=== PATIENT | male | born 1950 | race Caucasian/White ===

== ENCOUNTER → 2020-11-01 07:32 | Outpatient (CLI) | payer MEDICARE, OTHER, SELFPAY ==
[2020-11-01] MEDS: COVID-19 VACC #1, MRNA(MOD) 100 MCG/0.5 ML VIAL IM (07:37)
== END ==
PROVIDERS: Visit Provider Internal Medicine
DX: Z23 Encounter for immunization (principal)
CPT/HCPCS: 0011A; 91301

== ENCOUNTER → 2020-11-29 07:26 | Outpatient (CLI) | payer MEDICARE, OTHER, SELFPAY ==
[2020-11-29] MEDS: COVID-19 VACC #2, MRNA(MOD) 100 MCG/0.5 ML VIAL IM (07:36)
== END ==
PROVIDERS: Visit Provider Internal Medicine
DX: Z23 Encounter for immunization (principal)
CPT/HCPCS: 0012A; 91301

== ENCOUNTER → 2021-09-18 07:48 | Outpatient (CLI) | payer MEDICARE, OTHER, SELFPAY ==
--- NOTE | 2021-09-18 | DI.RAD.S_ITS ---
PROCEDURE: XR HAND RT 2V INDICATIONS: Hand pain TECHNIQUE: 3 views of the hand(s) acquired. COMPARISON: None. FINDINGS: Bones: No fractures or dislocations. Carpal bones are normally aligned. No suspicious bony lesions. There are degenerative changes of the interphalangeal joints. No erosions or evidence of inflammatory arthropathy. Soft tissues: No suspicious soft tissue calcifications. IMPRESSION: 1. No acute abnormality of the right hand. 2. No radiographic evidence of inflammatory arthropathy. 3. Mild degenerative changes of the interphalangeal joints. Dictated by: Boby López M.D. on 09/18/2021 at 14:58 Approved by: Boby López M.D. on 09/18/2021 at 14:59
--- NOTE | 2021-09-18 | DI.RAD.S_ITS ---
PROCEDURE: XR HAND LT 2V INDICATIONS: hand pain TECHNIQUE: 2 views of the hand acquired. COMPARISON: None. FINDINGS: Bones: No acute fractures or dislocations. Carpal bones are normally aligned. No suspicious bony lesions. Mild scattered degenerative changes are seen involving the 1st carpometacarpal joint, the triscaphe joint, and nearly all of the interphalangeal joints. No definite osseous erosion is seen. Soft tissues: No suspicious soft tissue calcifications. IMPRESSION: No acute osseous abnormality. Mild scattered degenerative osteoarthrosis. If the symptoms persist, consider cross sectional imaging such as MRI for further assessment. Dictated by: Ramiro Roland M.D. on 09/18/2021 at 10:27 Approved by: Ramiro Roland M.D. on 09/18/2021 at 10:30
[2021-09-18 09:10] LABS: Add Manual Diff / Slide Review NO; Basophils Absolute Auto 0 /uL (0-100); Basophils Percent Auto 0.7 % (0-2); Eosinophils Absolute Auto 400 /uL (0-450); Eosinophils Percent Auto 5.3 % (2-4); Hematocrit 43.6 % (41-53); Hemoglobin 14.8 g/dL (13.5-17.5); Lymphocytes Absolute Auto 1500 /uL (1100-4500); Lymphocytes Percent Auto 21.6 % (25-40); Mean Corpuscular HGB Conc 33.9 % (30-36); Mean Corpuscular Hemoglobin 32.1 PG (26-34); Mean Corpuscular Volume 94.6 fL (80-100); Monocytes Absolute Auto 600 /uL (0-900); Monocytes Percent Auto 8.8 % (3-14); Neutrophils Absolute Auto 4500 /uL (1500-7000); Neutrophils Percent Auto 63.6 % (50-75); Platelet Count 280 X10^3/uL (150-400); Red Blood Cell Count 4.61 X10^6/uL (4.5-5.9); Red Cell Distribution Width 13.8 % (11.6-14.8)
[2021-09-18 09:34] LABS: Erythrocyte Sedimentation Rate 5 MM/HR (0-15)
[2021-09-18 10:06] LABS: Alanine Aminotransferase 25 IU/L (<50); Albumin 4.2 g/dL (3.5-5.0); Albumin Globulin Ratio 1.6 (1.0-2.8); Alkaline Phosphatase 58 U/L (38-126); Aspartate Aminotransferase 25 IU/L (17-59); BUN Creatinine Ratio 18.1 (6-22); Bilirubin Total 1.4 mg/dL (0.2-1.3); Blood Urea Nitrogen 15 mg/dL (9-20); Calcium 9.8 mg/dL (8.4-10.2); Carbon Dioxide 26 mmol/L (22-32); Chloride 108 mmol/L (98-107); Cholesterol 149 mg/dL (140-199); Estimated Glomerular Filt Rate > 60.0 mL/min (>60); Globulin 2.6 g/dL (1.7-4.1); Glucose 95 mg/dL (80-110); HDL Cholesterol 65 mg/dL (40-60); HEMOLYSIS < 15 (0-50); LDL Cholesterol Calculated 66 mg/dL (<100); Potassium 4.4 mmol/L (3.4-5.1); Sodium 139 mmol/L (137-145); Total Protein 6.8 g/dL (6.3-8.2); Triglycerides 92 mg/dL (35-150)
[2021-09-19 17:41] LABS: ANA Screen, IFA Negative (.)
== END ==
PROVIDERS: Referring Provider Physician Assistant; Visit Provider Physician Assistant
DX: I10 Essential (primary) hypertension (principal); M25.549 Pain in joints of unspecified hand; E78.5 Hyperlipidemia, unspecified
CPT/HCPCS: 36415; 73120; 80053; 80061; 85025; 85651; 86038

== ENCOUNTER → 2022-06-18 12:28 | Outpatient (CLI) | payer MEDICARE, OTHER, SELFPAY ==
--- NOTE | 2022-06-18 12:32 | DI.RAD.S_ITS ---
PROCEDURE: XR SHOULDER LT MIN 2V INDICATIONS: SHOULDER PAIN TECHNIQUE: 4 views of the shoulder were acquired. COMPARISON: None. FINDINGS: Bones: No acute fractures or dislocations. No suspicious bony lesions. Visualized ribs appear intact. Moderate left acromioclavicular osteoarthrosis. Mild glenohumeral joint degenerative change. Coracoclavicular and acromioclavicular intervals are maintained. Soft tissues: No suspicious soft tissue calcifications. IMPRESSION: Left shoulder without acute fracture or dislocation. Degenerative changes of the left acromioclavicular and glenohumeral joints. Dictated by: Michael Denise M.D. on 06/18/2022 at 14:04 Approved by: Michael Denise M.D. on 06/18/2022 at 14:05
--- NOTE | 2022-06-18 12:32 | DI.RAD.S_ITS ---
PROCEDURE: XR SHOULDER RT MIN 2V INDICATIONS: SHOULDER PAIN TECHNIQUE: 3 views of the shoulder were acquired. COMPARISON: None. FINDINGS: Bones: No acute fractures or dislocations. No suspicious bony lesions. Visualized ribs appear intact. Moderate degenerative changes of the right acromioclavicular joint. Minimal glenohumeral joint degenerative change. Coracoclavicular and acromioclavicular intervals are maintained. Soft tissues: No suspicious soft tissue calcifications. IMPRESSION: Right shoulder without acute fracture or dislocation. Degenerative changes of the right acromioclavicular and glenohumeral joints. Dictated by: Michael Denise M.D. on 06/18/2022 at 14:05 Approved by: Michael Denise M.D. on 06/18/2022 at 14:17
== END ==
PROVIDERS: PCP Family Medicine; Referring Provider Family Medicine; Visit Provider Family Medicine
DX: M25.511 Pain in right shoulder (principal); M25.512 Pain in left shoulder
CPT/HCPCS: 73030

== ENCOUNTER → 2022-06-19 06:58 | Outpatient (CLI) | payer MEDICARE, OTHER, SELFPAY ==
[2022-06-19 08:26] LABS: Add Manual Diff / Slide Review NO; Basophils Absolute Auto 100 /uL (0-100); Basophils Percent Auto 0.8 % (0-2); Eosinophils Absolute Auto 300 /uL (0-450); Eosinophils Percent Auto 3.5 % (2-4); Hematocrit 36.3 % (41-53); Hemoglobin 12.5 g/dL (13.5-17.5); Lymphocytes Absolute Auto 1500 /uL (1100-4500); Lymphocytes Percent Auto 16.6 % (25-40); Mean Corpuscular HGB Conc 34.4 % (30-36); Mean Corpuscular Hemoglobin 30.9 PG (26-34); Mean Corpuscular Volume 89.8 fL (80-100); Monocytes Absolute Auto 700 /uL (0-900); Monocytes Percent Auto 7.6 % (3-14); Neutrophils Absolute Auto 6500 /uL (1500-7000); Neutrophils Percent Auto 71.5 % (50-75); Platelet Count 357 X10^3/uL (150-400); Red Blood Cell Count 4.05 X10^6/uL (4.5-5.9); Red Cell Distribution Width 14.1 % (11.6-14.8)
[2022-06-19 08:58] LABS: Alanine Aminotransferase 15 IU/L (<50); Albumin 3.9 g/dL (3.5-5.0); Albumin Globulin Ratio 1.3 (1.0-2.8); Alkaline Phosphatase 74 U/L (38-126); Aspartate Aminotransferase 18 IU/L (17-59); BUN Creatinine Ratio 26.7 (6-22); Bilirubin Total 0.8 mg/dL (0.2-1.3); Blood Urea Nitrogen 24 mg/dL (9-20); Calcium 9.6 mg/dL (8.4-10.2); Carbon Dioxide 25 mmol/L (22-32); Chloride 104 mmol/L (98-107); Cholesterol 143 mg/dL (140-199); Estimated Glomerular Filt Rate > 60 mL/min (>60); Globulin 2.9 g/dL (1.7-4.1); Glucose 91 mg/dL (80-110); HDL Cholesterol 48 mg/dL (40-60); HEMOLYSIS < 15 (0-50); LDL Cholesterol Calculated 79 mg/dL (<100); Potassium 4.5 mmol/L (3.4-5.1); Sodium 140 mmol/L (137-145); Total Protein 6.8 g/dL (6.3-8.2); Triglycerides 78 mg/dL (35-150)
[2022-06-19 09:03] LABS: Creatinine Urine Random 230.4 mg/dL
[2022-06-19 09:06] LABS: Microalbumi Creatinin Ratio Ur 4.7 ug/mg CR (<30); Microalbumin Urine Random 1.1 mg/dL (0-1.6)
[2022-06-19 09:18] LABS: Vitamin D 25 Hydroxy (D3) 93.4 ng/mL (30.0-100.0)
[2022-06-19 09:31] LABS: Prostate Specific Antigen 1.85 ng/mL (0.10-4.00)
[2022-06-19 10:07] LABS: Folate > 20.0 ng/mL (2.76-20.0); Vitamin B12 591 pg/mL (239-931)
== END ==
PROVIDERS: PCP Family Medicine; Referring Provider Family Medicine; Visit Provider Family Medicine
DX: E78.5 Hyperlipidemia, unspecified (principal); R39.198 Other difficulties with micturition; Z13.21 Encounter for screening for nutritional disorder; I10 Essential (primary) hypertension; Z13.9 Encounter for screening, unspecified
CPT/HCPCS: 36415; 80053; 80061; 82043; 82306; 82570; 82607; 82746; 84153; 85025

== ENCOUNTER → 2022-08-22 08:57 | Outpatient (CLI) | payer MEDICARE, OTHER, SELFPAY ==
[2022-08-22 10:22] LABS: Add Manual Diff / Slide Review NO; Basophils Absolute Auto 100 /uL (0-100); Basophils Percent Auto 0.7 % (0-2); Eosinophils Absolute Auto 300 /uL (0-450); Hematocrit 40.9 % (41-53); Hemoglobin 13.9 g/dL (13.5-17.5); Lymphocytes Absolute Auto 1700 /uL (1100-4500); Lymphocytes Percent Auto 16.1 % (25-40); Mean Corpuscular HGB Conc 33.9 % (30-36); Mean Corpuscular Hemoglobin 31.4 PG (26-34); Mean Corpuscular Volume 92.5 fL (80-100); Monocytes Absolute Auto 800 /uL (0-900); Monocytes Percent Auto 8.1 % (3-14); Neutrophils Absolute Auto 7400 /uL (1500-7000); Neutrophils Percent Auto 72.1 % (50-75); Platelet Count 354 X10^3/uL (150-400); Red Blood Cell Count 4.42 X10^6/uL (4.5-5.9); Red Cell Distribution Width 15.5 % (11.6-14.8); White Blood Cell Count 10.3 X10^3/uL (4.5-11.0)
[2022-08-22 10:38] LABS: HEMOLYSIS < 15 (0-50); Iron 65 ug/dL (49-181)
[2022-08-22 10:52] LABS: Percent Iron Saturation 23 % (20-50); Total Iron Binding Capacity 287 ug/dL (261-462); Transferrin 241 mg/dL (206-381)
[2022-08-22 11:16] LABS: Ferritin 96 ng/mL (18-464)
[2022-08-22 11:50] LABS: COVID19 -Nasal RAPID Negative (Negative)
== END ==
PROVIDERS: Surgery; PCP Family Medicine; Referring Provider Family Medicine; Visit Provider Family Medicine
DX: K92.1 Melena (principal); Z01.812 Encounter for preprocedural laboratory examination; Z20.822 Contact with and (suspected) exposure to COVID-19; D64.9 Anemia, unspecified
CPT/HCPCS: 36415; 82728; 83540; 83550; 85025; 87635; C9803

== ENCOUNTER 2022-08-23 15:02 | Day surgery (SDC) | payer MEDICARE, OTHER, SELFPAY ==
[2022-08-23 15:22] VITALS: BP 148/89; PULSE 91; RESP 16; TEMP 36.3; O2SAT 98; BMI 26.6
[2022-08-23] MEDS: LACTATED RINGERS 1,000 ML 84 ML IV (15:34)
--- NOTE | 2022-08-23 16:47 | PM.HP.1 ---
History of Present Illness History of Present Illness Chief complaint: DX COLONOSCOPY Narrative: Mr. Springer states that his last colonoscopy was 8 years ago in [place], [place]. He does not recall the name of the clinic or hospital. He thinks he has some polyps but could not remember exactly what the follow-up recommendation was he has no family history of colon cancer. He has had blood from below in the past. And has had colonoscopies because of this. As far as he knows he is unsure of what the diagnosis was but he thinks maybe he has some hemorrhoids and possibly that is the reason. About a month or 2 ago had another episode with some small streaks of blood on his bowel movement again he just attributed this to hemorrhoids and thought not much of it. He has regular bowel movements and denies diarrhea constipation he has never had surgery before. Patient History Medical History (Updated 08/23/22 @ 16:50 by Lisa Gibbons MD) Hypercholesterolemia Hypertension Major depression in partial remission Family & Social History Social History: household members spouse Tobacco & Substance use: Smoking Status Never smoker alcohol intake current alcohol intake frequency a few times a week Substance Use Type does not use Meds Home Medications and Allergies Home Medications Medication Instructions Recorded Confirmed Type atorvastatin 10 mg tablet 10 mg PO DAILY 06/09/19 10/17/20 History lisinopril 5 mg tablet 5 mg PO DAILY 06/09/19 10/17/20 History valacyclovir 500 mg tablet 500 mg PO DAILY 06/09/19 08/23/22 History (Valtrex) trazodone 100 mg tablet 100 mg PO BEDTIME PRN insomnia #30 01/29/21 Rx tabs sodium,potassium,mag sulfates 17.5 See Rx Instructions PO .COMPLEX 08/14/22 Rx gram-3.13 gram-1.6 gram oral soln #354 mL (Suprep Bowel Prep Kit) Allergies Allergy/AdvReac Type Severity Reaction Status Date / Time No Known Drug Allergies Allergy Verified 10/17/20 10:05 Exam Vital Signs (past 8 hours): - 08/23/22 15:22 Temperature 97.3 F L Pulse Rate 91 H Respiratory Rate 16 Blood Pressure 148/89 H Pulse Oximetry 98 Oxygen Delivery Method Room Air Oxygen Delivery Method Room Air Const General: cooperative, healthy appearing and comfortable Resp Effort & Inspection: normal respiratory effort and able to speak in complete sentences Cardio Pulses: radial pulses present GI Palpation: soft and No tender Assessment & Plan Assessment and plan (1) Screening for colon cancer: Status: Acute Assessment & Plan narrative: I discussed risks benefits and alternatives of screening colonoscopy including but not limited to perforation of the colon. Understands the risks as well as the benefits and would like to proceed today. Time Spent With Patient Critical Care time: I spent a total of [] minutes of critical care time on this patient's care today; this time is exclusive of procedural time.
--- NOTE | 2022-08-23 17:22 | P.OP.COLON_ITS ---
Procedure & Clinicians Study performed: Colonoscopy Same procedure as scheduled: Yes Surgeon: Lisa Gibbons Procedure Notes Procedure in detail: Patient was taken to the endoscopy suite and placed in a left lateral decubitus position. A time-out was performed. Anesthesia provided a monitored anesthetic care. Digital rectal exam was performed and was normal so the colonoscope was introduced into the anus and advanced. It was advanced through to the cecum and a photograph was taken of the appendiceal orifice. The prep was good. The colonoscope was then withdrawn slowly with a withdrawal time of 15 minutes and other than large scattered diverticula which were photographed. The scope was retroflexed and a photograph of the internal hemorrhoidal piles was obtained. No other abnormalities were seen the patient tolerated the procedure well and went in good condition to the postoperative care unit. Specimen(s): none sent Post-procedure Recommendations: Colonoscopy in 10 years Plan for aftercare: Unless family history of colon cancer changes or there are changes in symptoms f ollow-up can be 10 years. I do recommend a high-fiber diet because of diverticular disease, and hemorrhoids.
[2022-08-23 17:24] VITALS: BP 110/67; PULSE 84; RESP 15; TEMP 36.3; O2SAT 96
[2022-08-23 17:29] VITALS: BP 101/74; PULSE 80; RESP 16; O2SAT 97
[2022-08-23 17:35] VITALS: BP 127/77; PULSE 82; RESP 16; O2SAT 97
[2022-08-23 17:39] VITALS: BP 137/81; PULSE 77; RESP 20; TEMP 36.5; O2SAT 98
[2022-08-23 17:56] VITALS: BP 142/67; PULSE 78; RESP 16; O2SAT 98
== END 2022-08-23 18:08 | disposition home or self-care (01) ==
PROVIDERS: PCP Family Medicine; Referring Provider Family Medicine; Visit Provider Surgery
PROC: 0DJD8ZZ Inspection of Lower Intestinal Tract, Via Natural or Artificial Opening Endoscopic (ICD-10-PCS; CPT 45378; principal; 2022-08-23 16:15)
DX: Z12.11 Encounter for screening for malignant neoplasm of colon (principal); K64.8 Other hemorrhoids
CPT/HCPCS: G0121; J2704

== ENCOUNTER → 2023-07-15 07:26 | Outpatient (CLI) | payer MEDICARE, OTHER, SELFPAY ==
[2023-07-15 08:22] LABS: Add Manual Diff / Slide Review NO; Basophils Absolute Auto 100 /uL (0-100); Basophils Percent Auto 0.8 % (0-2); Eosinophils Absolute Auto 300 /uL (0-450); Hematocrit 42.6 % (41-53); Hemoglobin 14.6 g/dL (13.5-17.5); Lymphocytes Absolute Auto 1600 /uL (1100-4500); Lymphocytes Percent Auto 22.9 % (25-40); Mean Corpuscular HGB Conc 34.3 % (30-36); Mean Corpuscular Hemoglobin 32.4 PG (26-34); Mean Corpuscular Volume 94.5 fL (80-100); Monocytes Absolute Auto 700 /uL (0-900); Monocytes Percent Auto 9.9 % (3-14); Neutrophils Absolute Auto 4200 /uL (1500-7000); Neutrophils Percent Auto 61.4 % (50-75); Platelet Count 270 X10^3/uL (150-400); Red Blood Cell Count 4.51 X10^6/uL (4.5-5.9); Red Cell Distribution Width 13.8 % (11.6-14.8); White Blood Cell Count 6.8 X10^3/uL (4.5-11.0)
[2023-07-15 08:50] LABS: Alanine Aminotransferase 28 IU/L (<50); Albumin Globulin Ratio 1.6 (1.0-2.8); Alkaline Phosphatase 64 U/L (38-126); Aspartate Aminotransferase 24 IU/L (17-59); BUN Creatinine Ratio 19.7 (6-22); Bilirubin Total 1.3 mg/dL (0.2-1.3); Blood Urea Nitrogen 14 mg/dL (9-20); Calcium 9.8 mg/dL (8.4-10.2); Carbon Dioxide 24 mmol/L (22-32); Chloride 105 mmol/L (98-107); Cholesterol 157 mg/dL (140-199); Estimated Glomerular Filt Rate > 60 mL/min (>60); Globulin 2.5 g/dL (1.7-4.1); Glucose 98 mg/dL (80-110); HDL Cholesterol 61 mg/dL (40-60); HEMOLYSIS < 15 (0-50); LDL Cholesterol Calculated 72 mg/dL (<100); Potassium 4.5 mmol/L (3.4-5.1); Sodium 137 mmol/L (137-145); Total Protein 6.5 g/dL (6.3-8.2); Triglycerides 118 mg/dL (35-150)
[2023-07-15 09:16] LABS: Prostate Specific Antigen 1.65 ng/mL (0.10-4.00)
[2023-07-15 16:48] LABS: Hep C Virus Ab w/Reflex Quant NEGATIVE s/c (NEGATIVE)
== END ==
PROVIDERS: PCP Family Medicine; Referring Provider Nurse Practitioner Family; Visit Provider Nurse Practitioner Family
DX: E78.5 Hyperlipidemia, unspecified (principal); Z12.5 Encounter for screening for malignant neoplasm of prostate; Z11.59 Encounter for screening for other viral diseases; G47.00 Insomnia, unspecified; D64.9 Anemia, unspecified
CPT/HCPCS: 36415; 80053; 80061; 84153; 84443; 85025; 86803; G0103

== ENCOUNTER → 2024-02-20 07:14 | Outpatient (CLI) | payer MEDICARE, OTHER, SELFPAY ==
[2024-02-20 15:45] LABS: Alanine Aminotransferase 31 IU/L (<50); Albumin 4.1 g/dL (3.5-5.0); Albumin Globulin Ratio 1.6 (1.0-2.8); Alkaline Phosphatase 67 U/L (38-126); Aspartate Aminotransferase 29 IU/L (17-59); BUN Creatinine Ratio 29.7 (6-22); Bilirubin Total 1.3 mg/dL (0.2-1.3); Blood Urea Nitrogen 22 mg/dL (9-20); Calcium 9.8 mg/dL (8.4-10.2); Carbon Dioxide 24 mmol/L (22-32); Chloride 110 mmol/L (98-107); Estimated Glomerular Filt Rate > 60 mL/min (>60); Globulin 2.6 g/dL (1.7-4.1); Glucose 96 mg/dL (80-110); HEMOLYSIS < 15 (0-50); Potassium 4.5 mmol/L (3.4-5.1); Sodium 139 mmol/L (137-145); Total Protein 6.7 g/dL (6.3-8.2)
[2024-02-21 08:17] LABS: Cholesterol HDL Ratio 3.9 ratio (0.0-5.0); Cholesterol,Total 224 mg/dL (100-199); HDL Cholesterol 57 mg/dL (>39); LDL Cholesterol Cal 140 mg/dL (0-99); Triglycerides 154 mg/dL (0-149); VLDL Cholesterol Cal 27 mg/dL (5-40)
== END ==
PROVIDERS: PCP Nurse Practitioner Family; Referring Provider Nurse Practitioner Family; Visit Provider Nurse Practitioner Family
DX: E78.5 Hyperlipidemia, unspecified (principal)
CPT/HCPCS: 36415; 80053; 80061

== ENCOUNTER → 2024-07-27 06:58 | Outpatient (CLI) | payer MEDICARE, OTHER, SELFPAY ==
[2024-07-27 08:46] LABS: Alanine Aminotransferase 25 IU/L (<50); Albumin 4.3 g/dL (3.5-5.0); Albumin Globulin Ratio 1.7 (1.0-2.8); Alkaline Phosphatase 71 U/L (38-126); Aspartate Aminotransferase 23 IU/L (17-59); BUN Creatinine Ratio 17.4 (6-22); Bilirubin Total 0.9 mg/dL (0.2-1.3); Blood Urea Nitrogen 15 mg/dL (9-20); Carbon Dioxide 26 mmol/L (22-32); Chloride 105 mmol/L (98-107); Estimated Glomerular Filt Rate > 60 mL/min (>60); Globulin 2.5 g/dL (1.7-4.1); Glucose 99 mg/dL (80-110); HEMOLYSIS < 15 (0-50); Potassium 4.7 mmol/L (3.4-5.1); Sodium 139 mmol/L (137-145); Total Protein 6.8 g/dL (6.3-8.2)
[2024-07-27 09:16] LABS: Prostate Specific Antigen 1.53 ng/mL (0.10-4.00)
[2024-07-28 09:24] LABS: Cholesterol HDL Ratio 3.1
[2024-07-28 09:25] LABS: LDL Cholesterol Cal 101; VLDL Cholesterol Cal 24
[2024-07-28 09:26] LABS: HDL Cholesterol 59; Triglycerides 138
[2024-07-28 09:27] LABS: Cholesterol,Total 184
== END ==
PROVIDERS: PCP Nurse Practitioner Family; Referring Provider Nurse Practitioner Family; Visit Provider Nurse Practitioner Family
DX: N40.1 Benign prostatic hyperplasia with lower urinary tract symptoms (principal); E78.5 Hyperlipidemia, unspecified
CPT/HCPCS: 36415; 80053; 80061; 84153

== ENCOUNTER → 2025-07-12 07:13 | Outpatient (CLI) | payer MEDICARE, OTHER, SELFPAY ==
[2025-07-12 08:50] LABS: Alanine Aminotransferase 26 IU/L (<50); Albumin 4.3 g/dL (3.5-5.0); Albumin Globulin Ratio 1.6 (1.0-2.8); Alkaline Phosphatase 76 U/L (38-126); Blood Urea Nitrogen 13 mg/dL (9-20); Calcium 9.9 mg/dL (8.4-10.2); Carbon Dioxide 24 mmol/L (22-32); Chloride 106 mmol/L (98-107); Cholesterol 161 mg/dL (140-199); Estimated Glomerular Filt Rate > 60 mL/min (>60); Globulin 2.7 g/dL (1.7-4.1); Glucose 101 mg/dL (70-99); HDL Cholesterol 64 mg/dL (40-60); HEMOLYSIS < 15 (0-50); Potassium 4.1 mmol/L (3.4-5.1); Sodium 138 mmol/L (137-145); Total Protein 7.0 g/dL (6.3-8.2); Triglycerides 124 mg/dL (35-150)
[2025-07-12 10:49] LABS: Microalbumi Creatinin Ratio Ur 6.0 ug/mg CR (<30)
== END ==
PROVIDERS: PCP Family Medicine; Referring Provider Family Medicine; Visit Provider Family Medicine
DX: I10 Essential (primary) hypertension (principal); E78.00 Pure hypercholesterolemia, unspecified
CPT/HCPCS: 36415; 80053; 80061; 82043; 82570

== ENCOUNTER → 2025-08-26 16:19 | Outpatient (CLI) | payer MEDICARE, OTHER, SELFPAY ==
--- NOTE | 2025-08-26 16:21 | DI.RAD.S_ITS ---
PROCEDURE: XR CHEST 2V INDICATIONS: Cough TECHNIQUE: 2 views of the chest were acquired. COMPARISON: [facility], CR, XR SHOULDER 2+ VIEWS RIGHT, 08/27/2022, 8:48. FINDINGS: Surgical changes and devices: None. Lungs and pleura: Poorly defined infiltrates can be seen at the lung bases. Pleural calcification can be seen. No pneumothorax or large pleural effusion can be seen. Mediastinum: The cardiac contours are within normal limits. The aorta demonstrates calcification and tortuosity. Bones and chest wall: No suspicious bony abnormalities. Age-appropriate bony degenerative changes are seen. Soft tissues appear unremarkable. IMPRESSION: Poorly defined infiltrate seen at the lung bases. Followup chest radiographs are recommended to complete resolution. If this abnormality does not completely resolve on plain film, then a chest CT with contrast would be recommended to evaluate for a potential underlying mass. Dictated by: William Pickard M.D. on 08/26/2025 at 16:14 Approved by: William Pickard M.D. on 08/26/2025 at 16:16
== END ==
LOC: RAD 16:20
PROVIDERS: PCP Family Medicine; Referring Provider Nurse Practitioner Family; Visit Provider Nurse Practitioner Family
DX: R05.9 Cough, unspecified (principal); J94.8 Other specified pleural conditions
CPT/HCPCS: 71046

== ENCOUNTER → 2025-09-02 09:53 | Outpatient (CLI) | payer MEDICARE, OTHER, SELFPAY ==
--- NOTE | 2025-09-02 09:57 | DI.RAD.S_ITS ---
PROCEDURE: XR CHEST 2V INDICATIONS: Repeat follow-up chest x-ray pneumonia TECHNIQUE: 2 views of the chest were acquired. COMPARISON: [facility], CR, XR CHEST 2V, 08/26/2025, 16:14. FINDINGS: Surgical changes and devices: None. Lungs and pleura: Extensive pleural calcifications. Resolved opacities in the lung bases. Mediastinum: Mediastinal contours are normal. Heart size is normal. Bones and chest wall: No suspicious bony abnormalities. Soft tissues appear unremarkable. IMPRESSION: Resolved opacities in the lung bases. Extensive pleural calcifications, presumably prior asbestos exposure. Dictated by: Silvestre Matamoros M.D. on 09/02/2025 at 16:46 Approved by: Silvestre Matamoros M.D. on 09/02/2025 at 16:46
== END ==
PROVIDERS: PCP Family Medicine; Referring Provider Nurse Practitioner Family; Visit Provider Nurse Practitioner Family
DX: J94.8 Other specified pleural conditions (principal); R05.1 Acute cough
CPT/HCPCS: 71046

== ENCOUNTER → 2025-09-12 15:52 | Outpatient (CLI) | payer MEDICARE, OTHER, SELFPAY ==
[2025-09-12 16:20] LABS: Add Manual Diff / Slide Review NO; Hematocrit 38.1 % (41-53); Hemoglobin 13.2 g/dL (13.5-17.5); Lymphocytes Absolute Auto 1900 /uL (1100-4500); Mean Corpuscular HGB Conc 34.7 % (30-36); Mean Corpuscular Hemoglobin 31.9 PG (26-34); Mean Corpuscular Volume 91.7 fL (80-100); Platelet Count 431 X10^3/uL (150-400)
== END ==
PROVIDERS: PCP Family Medicine; Referring Provider Family Medicine; Visit Provider Family Medicine
DX: R05.9 Cough, unspecified (principal)
CPT/HCPCS: 36415; 85025

== ENCOUNTER → 2025-09-21 15:15 | Outpatient (CLI) | payer MEDICARE, OTHER, SELFPAY | PROVIDERS: PCP Family Medicine; Referring Provider Family Medicine; Visit Provider Family Medicine | DX: R05.9 Cough, unspecified (principal); Z77.090 Contact with and (suspected) exposure to asbestos; R94.2 Abnormal results of pulmonary function studies | CPT/HCPCS: 94060; 94726; 94729 ==